=== PATIENT | male | born 1965 | race Caucasian/White ===

== ENCOUNTER 2022-02-14 03:40 | Emergency (ER) | payer SELFPAY ==
[2022-02-14] MEDS ORDERED: PERCOCET 5-3251 EACH PO (06:08)
== END 2022-02-14 06:50 | disposition home or self-care (01) ==
LOC: FER 03:40
DX: S00.11XA Contusion of right eyelid and periocular area, initial encounter (principal); M25.511 Pain in right shoulder; M25.571 Pain in right ankle and joints of right foot; F17.210 Nicotine dependence, cigarettes, uncomplicated; Y04.0XXA Assault by unarmed brawl or fight, initial encounter; Y92.59 Other trade areas as the place of occurrence of the external cause
CPT/HCPCS: 70486; 73030; 73600